=== PATIENT | male | born 1975 | race Caucasian/White ===

== ENCOUNTER → 2021-02-12 11:07 | Outpatient (CLI) | payer OTHER, SELFPAY ==
--- NOTE | ~2021-02-12 | XR_ITS ---
EXAMINATION: XR chest 2V 02/12/2021 12:21 INDICATION: Chest fatigue PROCEDURE: 2 view chest COMPARISON: 01/04/2010 FINDINGS: The lungs are clear. The cardiomediastinal silhouette is within normal limits. There are no pleural effusions. There is no pneumothorax suspected. IMPRESSION: 1: NO ACUTE CARDIOPULMONARY DISEASE. Reviewed, dictated and finalized at location A. [facility] RN
== END ==
PROVIDERS: PCP Family Medicine Adolescent Medicine; Visit Provider Family Medicine Adolescent Medicine
DX: R53.83 Other fatigue (principal); R55 Syncope and collapse
CPT/HCPCS: 71046

== ENCOUNTER 2023-11-14 07:00 | Outpatient (NON) | payer OTHER, SELFPAY | END 2023-11-14 07:01 | disposition home or self-care (01) | LOC: ANHLAB 11-15 06:59 | PROVIDERS: PCP Family Medicine Adolescent Medicine; Visit Provider Internal Medicine Gastroenterology | DX: Z12.11 Encounter for screening for malignant neoplasm of colon (principal); D12.4 Benign neoplasm of descending colon | CPT/HCPCS: 88305 ==

== ENCOUNTER 2023-11-14 09:40 | Day surgery (SDC) | payer OTHER, SELFPAY ==
[2023-11-02 14:40] VITALS: BMI 25.1
[2023-11-07 11:28] VITALS: BMI 23.7
--- NOTE | 2023-11-14 10:36 | PM.HPGS ---
History of Present Illness History of Present Illness Consent: Risks, benefits, and alternatives have been discussed and questions answered. Patient agrees to proceed with procedure. Chief complaint: Neoplasm Screening Narrative: Leonard Kim is a 48 year old male presents for screening colonoscopy. Patient's current weight appetite and bowel movements are normal. Patient denies abdominal pain. He has had no bleeding. Family history is noncontributory. Patient does have a past medical history of celiac disease. He currently is. He has been maintained on a gluten free diet for at least 7 years. Review of Systems Review of Systems: All systems reviewed & are unremarkable except as noted in HPI and below PMFSH Past Medical History Medical History Celiac disease Fatigue Hypercholesterolemia Testicular hypofunction Vitamin D deficiency Surgical History Surgical History H/O sinus surgery Family History Family History Father Family history of throat cancer Lung cancer Heart disease Mother Hypertension Cerebrovascular accident Social History Social History (Updated 11/30/22 @ 14:29 by María Segal) Social History: caffeine-soda/tea Smoking status: Former smoker Tobacco type: cigarettes Second hand tobacco smoke exposure: No Alcohol intake: current Drinks per week: 6 Alcohol use details: Socially Substance use: former Substance use type: marijuana Lack of Transportation: No Lack of Food: Never True Current Housing: I Have Housing Concerned About Future Housing: No Difficulty Paying Gas/Electric Bills: No Difficulty Paying for Meds: No Currently Unemployed: No Education: Master's Degree or Higher Difficulty w/ Childcare or Family Care: No Living arrangements: alone Occupation/Education: occupation Gender identity (if verbalized by the patient): Male Spiritual care concerns: No Agree to blood products: Yes Meds Home Medications and Allergies Home Medications Medication Instructions Recorded Confirmed Type tamsulosin 0.4 mg capsule 0.4 mg PO DAILY 11/30/22 11/14/23 History atorvastatin 20 mg tablet 20 mg PO DAILY #30 tabs 05/24/23 11/14/23 Rx valacyclovir 500 mg tablet 500 mg PO DAILY #90 tabs 09/10/23 11/14/23 Rx testosterone cypionate 200 mg/mL 150 mg (0.75 mL) IM WEEKLY #4 mL 09/28/23 11/14/23 Rx intramuscular oil lorazepam 1 mg tablet 1 mg PO TID PRN anxiety #90 tabs 10/02/23 11/14/23 Rx cholecalciferol (vitamin D3) 50 50 mcg PO DAILY 11/07/23 11/14/23 History mcg (2,000 unit) tablet (Vitamin D3) multivitamin with minerals-folic 1 tablet PO DAILY 11/07/23 11/14/23 History acid 0.4 mg tablet sildenafil 100 mg tablet 100 mg PO DAILY PRN sexual activity 11/07/23 11/14/23 History triamcinolone acetonide 0.1 % 1 applic topical BID PRN other 11/07/23 11/14/23 History topical ointment Allergies Allergy/AdvReac Type Severity Reaction Status Date / Time citalopram Allergy Unknown Rash Verified 11/14/23 10:27 duloxetine Allergy Unknown unknown Verified 11/14/23 10:27 wheat Allergy Unknown unknown Verified 11/14/23 10:27 chicken AdvReac Severe Swelling Uncoded 11/14/23 10:27 Exam Narrative: Physical exam reveals patient to be alert. Vital signs stable. HEENT exam is unremarkable. Patient is anicteric. Lungs are clear to auscultation and percussion. Heart is without murmur or extra sounds. Abdomen bowel sounds are present soft nontender with no organomegaly. Digital external rectal exam normal. Assessment and Plan Assessment and plan (1) Screen for colon cancer: Code(s): Z12.11 - Encounter for screening for malignant neoplasm of colon Status: Acute Assessment and Plan: Patient presents today for colon cancer screening this could be. Further recommend
[2023-11-14 10:39] VITALS: BMI 22.7
[2023-11-14 10:40] VITALS: BP 119/89; PULSE 75; RESP 18; TEMP 37.3; O2SAT 100
--- NOTE | 2023-11-14 10:44 | SUR.PREOP ---
PT VERY ANXIOUS, HANDS SHAKING. PT COMFORTED. ANESTHESIA NOTIFIED.
--- NOTE | 2023-11-14 10:50 | WPDANESEPPF ---
Anes - Initial Pre Proc Eval Procedure: Operation Date: 11/14/23 11:30 Proposed Procedures p Screening Colonoscopy - Eyad Hernandes MD Date/Time: 11/14/23 10:50 Surgeon: Eyad Hernandes MD Pre Op Diagnosis: Neoplasm Screening Patient Data Age: 48 Gender: M Height: 1.78 m Weight: 71.8 kg Last Vital Signs Temp 37.3 C 11/14/23 10:40 Pulse 75 11/14/23 10:40 Resp 18 11/14/23 10:40 BP 119/89 11/14/23 10:40 Pulse Ox 100 11/14/23 10:40 O2 Del Method Room Air 11/14/23 10:40 Allergies Allergy/AdvReac Type Severity Reaction Status Date / Time citalopram Allergy Unknown Rash Verified 11/14/23 10:27 duloxetine Allergy Unknown unknown Verified 11/14/23 10:27 wheat Allergy Unknown unknown Verified 11/14/23 10:27 chicken AdvReac Severe Swelling Uncoded 11/14/23 10:27 Home Medications Medication Instructions Recorded Confirmed Type tamsulosin 0.4 mg capsule 0.4 mg PO DAILY 11/30/22 11/14/23 History atorvastatin 20 mg tablet 20 mg PO DAILY #30 tabs 05/24/23 11/14/23 Rx valacyclovir 500 mg tablet 500 mg PO DAILY #90 tabs 09/10/23 11/14/23 Rx testosterone cypionate 200 mg/mL 150 mg (0.75 mL) IM WEEKLY #4 mL 09/28/23 11/14/23 Rx intramuscular oil lorazepam 1 mg tablet 1 mg PO TID PRN anxiety #90 tabs 10/02/23 11/14/23 Rx cholecalciferol (vitamin D3) 50 50 mcg PO DAILY 11/07/23 11/14/23 History mcg (2,000 unit) tablet (Vitamin D3) multivitamin with minerals-folic 1 tablet PO DAILY 11/07/23 11/14/23 History acid 0.4 mg tablet sildenafil 100 mg tablet 100 mg PO DAILY PRN sexual activity 11/07/23 11/14/23 History triamcinolone acetonide 0.1 % 1 applic topical BID PRN other 11/07/23 11/14/23 History topical ointment Patient hx anesthesia problems: none Family hx anesthesia problems: none Results Review: All pre-operative results and documents have been reviewed as part of the pre-operative evaluation. [facility] Past Medical History Medical History Celiac disease Fatigue Hypercholesterolemia Testicular hypofunction Vitamin D deficiency Surgical History Surgical History H/O sinus surgery Family History Family History Father Family history of throat cancer Lung cancer Heart disease Mother Hypertension Cerebrovascular accident Social History Social History Social History: caffeine-soda/tea Smoking status: Former smoker Tobacco type: cigarettes Second hand tobacco smoke exposure: No Alcohol intake: current Drinks per week: 6 Alcohol use details: Socially Substance use: former Substance use type: marijuana Lack of Transportation: No Lack of Food: Never True Current Housing: I Have Housing Concerned About Future Housing: No Difficulty Paying Gas/Electric Bills: No Difficulty Paying for Meds: No Currently Unemployed: No Education: Master's Degree or Higher Difficulty w/ Childcare or Family Care: No Living arrangements: alone Occupation/Education: occupation Gender identity (if verbalized by the patient): Male Spiritual care concerns: No Agree to blood products: Yes Anes - Eval Final PreProcedure Day of Procedure 11/14/23 10:50 Patient weight: normal Heart: regular rate and rhythm Lungs: clear to auscultation Airway: Mallampati scale class II Neurological: alert and oriented Last oral intake: >/= 8 hours ASA classification: III Emergent: no Anesthetic plan: proceed Anesthesia type and monitoring: general GIVS Results Review: All pre-operative results and documents have been reviewed as part of the pre-operative evaluation. Informed Consent: The patient's anesthetic plan and its attendant risks and benefits were discussed with the patient/family/POA. Questions were solicited and answers provided
[2023-11-14] MEDS: LACTATED RINGERS 1,000 ML 150 ML IV CONT (10:51)
[2023-11-14 11:17] VITALS: BP 110/57; PULSE 67; RESP 16; O2SAT 98
--- NOTE | 2023-11-14 11:20 | WPDANESPN ---
Anes - Prog Note Post-Op Date/Time: 11/14/23 11:20 Cardiovascular status: normal Respiratory status: normal Airway patency: baseline Mental status: baseline Post-Op hydration status: normal Vital Signs: Last Vital Signs Temp 37.3 C 11/14/23 10:40 Pulse 75 11/14/23 10:40 Resp 18 11/14/23 10:40 BP 119/89 11/14/23 10:40 Pulse Ox 100 11/14/23 10:40 O2 Del Method Room Air 11/14/23 10:40 Pain Score (VAS): 0 I/O: Intake & Output 11/13/23 11/14/23 11/14/23 23:59 07:59 15:59 Intake Total 400 Balance 400 Post-procedural complaints: none Patient Feedback: Patient satisfied with anesthetic care.
[2023-11-14 11:27] VITALS: BP 112/63; PULSE 68; RESP 16; O2SAT 100
[2023-11-14 11:37] VITALS: BP 113/81; PULSE 66; RESP 16; O2SAT 100
== END 2023-11-14 11:48 | disposition home or self-care (01) ==
PROVIDERS: PCP Family Medicine Adolescent Medicine; Visit Provider Internal Medicine Gastroenterology
PROC: 0DJD8ZZ Inspection of Lower Intestinal Tract, Via Natural or Artificial Opening Endoscopic (ICD-10-PCS; CPT 45378; principal; 2023-11-14 11:30)
DX: Z12.11 Encounter for screening for malignant neoplasm of colon (principal); D12.4 Benign neoplasm of descending colon; K64.8 Other hemorrhoids
CPT/HCPCS: 45385